=== PATIENT | male | born 1995 | race Caucasian/White ===

== ENCOUNTER → 2016-11-02 | Outpatient (CLI) | payer OTHER | LOC: RAD 11:18 | PROVIDERS: ATTEND Nurse Practitioner Family | DX: S06.0X1A Concussion with loss of consciousness of 30 minutes or less, initial encounter (principal); V86.99XA Unspecified occupant of other special all-terrain or other off-road motor vehicle injured in nontraffic accident, initial encounter | CPT/HCPCS: 70450; 72125 ==